=== PATIENT | male | born 1970 | race Caucasian/White ===

== ENCOUNTER 2016-07-21 13:27 | Emergency (ER) | payer OTHER ==
[~2016-07-21] VITALS: Ht 180.3 cm; Wt 104.3 kg
--- NOTE | 2016-07-21 13:32 | NUR ---
Patient ambulated to bed 02.
[2016-07-21 13:36] VITALS: BP 149/91
[2016-07-21] MEDS ORDERED: PRILOSEC OTC20 MG PO (13:38)
--- NOTE | 2016-07-21 13:40 | NUR ---
PT CAME TO ER W/ C/O CP TO MID CHEST X 10 DAYS, PT. ON PRILOSEC FOR ULCER.PT STATES PAIN COMES AND AGO BUT THIS PASSED 2 DAYS PAIN BECOMES WORSEN;PT [id number] 1 X LAST NOC.PT STATES "I FEEL LIKE FOOD IS COMING UP FROM STOMACH"DENIES SOB;FEVER.AAOX4;NO ACUTE DISTRESS NOTED AT THIS TIME;HOB ELEVATED;ALL MONITORS IN PLACED;NEEDS ATTENDED;SAFETY PRECAUTION INSTITUTED;DR SKAGGS MADE AWARE OF PT'S CONDITION.
--- NOTE | 2016-07-21 13:51 | NUR ---
Bret tapia in ED - 07/21/16 at [address] Schulz evaluating patient at bedside.
--- NOTE | 2016-07-21 14:00 | NUR ---
Dr. Schulz evaluating patient at bedside.
[2016-07-21] MEDS ORDERED: NITROGLYCERIN 0.4 MG TAB SL ONE (14:05)
[2016-07-21] MEDS ORDERED: ASPIRIN 325 MG TAB PO ONE (14:05)
--- NOTE | 2016-07-21 14:10 | NUR ---
XRAY AT BEDSIDE.
--- NOTE | 2016-07-21 14:12 | NUR ---
Bret tapia in [facility] - 07/21/16 at 1420 by SERGIO XRAY AT BEDSIDE
--- NOTE | 2016-07-21 14:22 | NUR ---
PT LYING ON BED COMFORTABLY;NO ACUTE DISTRESS NOTED AT THIS TIME;WILL CONTINUE TO MONITOR PT.
--- NOTE | 2016-07-21 15:13 | NUR ---
PT LYING ON BED COMFORTBLY PLAYING W/ HIS CELLPHONE;NO ACUTE DISTRESS NOTED AT THIS TIME;WILL CONTINUE TO MONITOR PT.
--- NOTE | 2016-07-21 15:26 | NUR ---
Patient discharged with v/s stable. Written and verbal after care instructions given and explained. Patient alert, oriented and verbalized understanding of instructions. Ambulatory with steady gait. All questions addressed prior to discharge. ID band removed. Patient advised to follow up with PMD. Rx of PRILOSEC given. Patient educated on indication of medication including possible reaction and side effects. Opportunity to ask questions provided and answered.
[2016-07-21 15:28] VITALS: BP 120/73
== END 2016-07-21 15:26 | disposition home or self-care (01) ==
LOC: MED 13:27
DX: K21.9 Gastro-esophageal reflux disease without esophagitis (principal)
CPT/HCPCS: 36415; 71010; 80053; 83880; 84484; 85025; 85610; 85730; 93005; 99285; Q0092